=== PATIENT | female | born 1985 | race Native Hawaiian/Other Pacific Islander ===

== ENCOUNTER 2017-06-12 15:18 | Emergency (ER) | payer BC ==
[~2017-06-12] VITALS: Ht 167.6 cm; Wt 92.5 kg
[~2017-06-12 15:18] MED LIST: CELEXA20 MG PO
[2017-06-12 16:26] LABS: PLATELET COUNT 195 K/uL (152-353)
[2017-06-12 16:32] LABS: POTASSIUM 3.9 mmol/L (3.6-5.2); SODIUM 134 mmol/L (136-145)
[2017-06-12 17:20] VITALS: BP 133/87; TEMP 98.1
== END 2017-06-12 17:20 | disposition home or self-care (01) ==
LOC: ED 15:18
DX: J20.9 Acute bronchitis, unspecified (principal)
CPT/HCPCS: 36415; 80053; 85027; 87070; 87205; 87899; 94664; 96372; 99283; J0696; J1020; J1100; J1885

== ENCOUNTER 2020-10-16 12:27 | Emergency (ER) | payer OTHER ==
[~2020-10-16] VITALS: Ht 167.6 cm; Wt 81.6 kg
[2020-10-16 12:43] VITALS: BP 145/79; TEMP 97.6
== END 2020-10-16 14:58 | disposition home or self-care (01) ==
LOC: ED 12:27
DX: S00.03XA Contusion of scalp, initial encounter (principal); S16.1XXA Strain of muscle, fascia and tendon at neck level, initial encounter; V86.95XA Unspecified occupant of 3- or 4- wheeled all-terrain vehicle (ATV) injured in nontraffic accident, initial encounter; Y92.89 Other specified places as the place of occurrence of the external cause
CPT/HCPCS: 96372; 99283; J1885